=== PATIENT | female | born 1985 | race Two or more races ===

== ENCOUNTER → 2017-05-17 | Outpatient (CLI) | payer BC, MEDICAID ==
[~2017-05-17] MED LIST: LIDOCAINE 1% 300 MG/30 ML SDV ONE
[2017-05-17 09:33] LABS: INR 0.96 (0.83-1.16)
== END ==
LOC: FIMAGING 08:46
PROVIDERS: ATTEND Psychiatry & Neurology Neurology
PROC: 009U3ZX Drainage of Spinal Canal, Percutaneous Approach, Diagnostic (ICD-10-PCS; principal; 2017-05-17)
DX: R41.3 Other amnesia (principal); R40.20 Unspecified coma; R56.9 Unspecified convulsions
CPT/HCPCS: 82784-90; 83916-90; 85060-90; 86592-90; 87529-90; 88184-90; 88185-91